=== PATIENT | female | born 1975 | race Caucasian/White ===

== ENCOUNTER 2022-12-26 18:33 | Emergency (ER) | payer OTHER ==
[~2022-12-26] VITALS: Ht 162.6 cm; Wt 83.0 kg
[2022-12-26 19:20] VITALS: BP_SYST 123
--- NOTE | 2022-12-26 19:26 | NUR ---
Patient triaged and placed in waiting room. VSS and patient appears in no acute distress at this time. Accompanied by SELF, awaiting available bed, and MD notified of need for MSE.
--- NOTE | 2022-12-26 23:35 | NUR ---
Dr. Pike is in triage room examining the patient.
--- NOTE | 2022-12-26 23:48 | NUR ---
Patient placed in chair 1 for re-evaluation. Instructed to notify ED staff for any changes in condition or worsening of symptoms. Patient verbalized understanding.
[2022-12-26] MEDS ORDERED: FLUT16SP16 NS (23:49)
[2022-12-26 23:51] VITALS: BP_SYST 124
--- NOTE | 2022-12-26 23:53 | NUR ---
Patient given written and verbal discharge instructions and verbalizes understanding. ER MD discussed with patient the results and treatment provided. Patient in stable condition. ID arm band removed. Rx of FLONASE given. Patient educated on pain management and to follow up with PMD. Pain Scale 0/10. Opportunity for questions provided and answered. Medication side effect fact sheet provided.
== END 2022-12-26 23:51 | disposition home or self-care (01) ==
LOC: SED 18:33
DX: H68.003 Unspecified Eustachian salpingitis, bilateral (principal); R42 Dizziness and giddiness; Z79.899 Other long term (current) drug therapy
CPT/HCPCS: 99283